=== PATIENT | female | born 1985 | race Caucasian/White ===

== ENCOUNTER 2020-12-23 12:40 | Emergency (ER) | payer OTHER ==
[~2020-12-23 12:40] MED LIST: ACETAMINOPHEN500 M1 PO; COLACE100 MG PO; MOTRIN600 MG PO; ONDANSETRON ODT4 MG PO; OXY-IR 5MG5 MG PO; PEPCID AC20 MG PO; PROTONIX 40MG T40 MG PO; PROZAC20 M1 PO
[2020-12-23 13:27] LABS: BASOPHIL 0.7 % (0-2); EOSINOPHIL 3.1 % (0-5); HCT 40.6 % (37.0-47.0); HGB 13.8 g/dl (12.5-16.0); LYMPHOCYTE 25.3 % (15-48); MCH 29.9 pg (25.0-31.0); MCV 88.1 fL (78.0-100.0); MONOCYTE 5.7 % (0-12); MPV 9.5 fL (6.0-9.5); NRBC 0; PLT 219 K/uL (150-400); RBC 4.61 M/uL (4.20-5.40); RDW 11.8 % (11.5-14.0); WBC 4.6 K/uL (4.0-10.5)
[2020-12-23 13:57] LABS: ALBUMIN 3.6 g/dL (3.4-5.0); BILIRUBIN - TOTAL 0.3 mg/dL (0.2-1.0); BUN/CREAT RATIO (CALC) 16.1 RATIO; CREATININE 0.62 mg/dL (0.51-0.95); GLOBULIN (CALCULATION) 3.2 g/dL; POTASSIUM 3.7 mmol/L (3.5-5.1); TOTAL PROTEIN 6.8 g/dL (6.4-8.2)
[2020-12-23 14:27] LABS: CKMB <0.5 ng/mL (0.0-3.6)
== END 2020-12-23 14:43 | disposition home or self-care (01) ==
LOC: FER 12:40
PROVIDERS: Emergency Medicine
DX: R07.89 Other chest pain (principal); Z87.891 Personal history of nicotine dependence
CPT/HCPCS: 36415; 71046; 80053; 82553; 84484; 85025

== ENCOUNTER 2021-08-31 11:23 | Emergency (ER) | payer OTHER ==
[~2021-08-31] VITALS: Ht 157.5 cm; Wt 76.2 kg
[2021-08-31 13:14] LABS: BASOPHIL 1.1 % (0-2); EOSINOPHIL 2.4 % (0-5); HCT 37.7 % (37.0-47.0); HGB 12.8 g/dl (12.5-16.0); LYMPHOCYTE 26.9 % (15-48); MCV 88.3 fL (78.0-100.0); MONOCYTE 6.8 % (0-12); MPV 9.5 fL (6.0-9.5); NEUTROPHIL 62.5 % (41-80); NRBC 0; PLT 257 K/uL (150-400); RBC 4.27 M/uL (4.20-5.40); RDW 11.9 % (11.5-14.0); WBC 3.7 K/uL (4.0-10.5)
[2021-08-31 13:25] LABS: ALBUMIN 3.9 g/dL (3.4-5.0); BILIRUBIN - TOTAL 0.4 mg/dL (0.2-1.0); BUN/CREAT RATIO (CALC) 14.9 RATIO; CREATININE 0.74 mg/dL (0.51-0.95); GLOBULIN (CALCULATION) 2.7 g/dL; TOTAL PROTEIN 6.6 g/dL (6.4-8.2)
[2021-08-31] MEDS ORDERED: ATARAX25 MG PO (14:06)
== END 2021-08-31 14:17 | disposition home or self-care (01) ==
LOC: FER 11:23
PROVIDERS: Internal Medicine
DX: F41.9 Anxiety disorder, unspecified (principal)
CPT/HCPCS: 36415; 71045; 80053; 83690; 84484; 85025; 93005

== ENCOUNTER 2021-09-14 09:34 | Emergency (ER) | payer OTHER ==
[~2021-09-14 09:34] MED LIST changes: +ATARAX25 MG PO
[2021-09-14 12:05] LABS: BASOPHIL 0.2 % (0-2); EOSINOPHIL 3.2 % (0-5); HCT 41.5 % (37.0-47.0); LYMPHOCYTE 26.2 % (15-48); MCH 29.9 pg (25.0-31.0); MCHC 33.7 g/dL (32.0-36.0); MCV 88.5 fL (78.0-100.0); MONOCYTE 9.2 % (0-12); NEUTROPHIL 60.7 % (41-80); NRBC 0; PLT 216 K/uL (150-400); RBC 4.69 M/uL (4.20-5.40)
[2021-09-14 12:12] LABS: BILIRUBIN - TOTAL 0.4 mg/dL (0.2-1.0); BUN/CREAT RATIO (CALC) 17.9 RATIO; CREATININE 0.78 mg/dL (0.51-0.95); POTASSIUM 4.1 mmol/L (3.5-5.1)
[2021-09-14 13:09] LABS: CORONAVIRUS 2019 SARS-COV-2 NEGATIVE (NEGATIVE); INFLUENZA A NAA NEGATIVE (NEGATIVE)
[2021-09-14 13:28] LABS: CHOLESTEROL 209 mg/dL (<200); HDL 45 mg/dL (40-60); LDL - DIRECT 148 mg/dL (<100); TRIGLYCERIDES 108 mg/dL (<150)
== END 2021-09-14 13:53 | disposition home or self-care (01) ==
LOC: FER 09:34
PROVIDERS: Internal Medicine
DX: R07.89 Other chest pain (principal); R11.0 Nausea; Z87.891 Personal history of nicotine dependence; Z20.822 Contact with and (suspected) exposure to COVID-19
CPT/HCPCS: 36415; 71045; 80053; 80061; 84484; 85025; 93005; U0002